=== PATIENT | female | born 1945 | race Caucasian/White ===

== ENCOUNTER 2016-10-01 06:21 | Emergency (ER) | payer MEDICARE, OTHER ==
--- NOTE | ~2016-10-01 | ST ---
Unit #: [id number] #: [id number] Patient: IZAIAH NICE [id number] [address] [address] [id number] E MR#: [id number] NAME: IZAIAH NICE. : 1945 SEX: F STUDY DATE/TIME: 10/01/2016 UNIT: HECTOR ROOM: STUDY DESCRIPTION: Stress test Attending Physician: Aguila Santiago Aprn Primary Care Physician: Saul Montanez M.D. CARDIOLOGY REPORT PROCEDURES PERFORMED Stress test. REASON FOR TEST Known coronary artery disease, left arm and left neck pain. PROCEDURE Baseline EKG shows sinus rhythm, rate of 80 beats per minute, left axis deviation, left bundle branch block. Per protocol, 0.4 mg of Lexiscan was injected, followed by Cardiolite. The patient did experience shortness of breath during the testing period but denied any complaints of chest pain. These symptoms resolved in the recovery period. There were no changes noted to the ST segment. There was an isolated PVC. The test was stopped secondary to protocol completion. CONCLUSIONS 1. Nondiagnostic EKG portion of Lexiscan Cardiolite due to baseline abnormalities and left bundle branch block. 2. No acute ST segment changes noted from baseline; however, unable to determine secondary to left bundle branch block. 3. The patient did experience shortness of breath during the testing period, which resolved in the recovery period. No complaints of chest pain. 4. There was an isolated PVC but no sustained arrhythmias. 5. Please correlate with nuclear images. Dictated by... Latia Jean A.P.R.N. for Lynne Shipman M.D. LMW/db TD: 10/01/2016 14:06 JOB #: [id number] Unit #: [id number] #: [id number] Patient: IZAIAH NICE CARDIOLOGY REPORT Page 1 of 1 X Latia Jean APRN CARDIOLOGY REPORT
--- NOTE | ~2016-10-01 | TH ---
Unit #: [id number] #: [id number] Patient: IZAIAH NICE [id number] [address] [address] [id number] E MR#: [id number] NAME: IZAIAH NICE. : 1945 SEX: F STUDY DATE/TIME: 10/01/2016 UNIT: [facility] ROOM: STUDY DESCRIPTION: Lexiscan stress test - Nuclear Attending Physician: Aguila Santiago Aprn Primary Care Physician: Saul Montanez M.D. CARDIOLOGY REPORT PROCEDURE PERFORMED Lexiscan Cardiolite stress test - Nuclear portion. PROCEDURE Using technetium 99m-labeled Cardiolite, rest and stress SPECT images were obtained. Multiple SPECT images were obtained in various views, including horizontal and vertical long axis and short axis views of the left ventricle. Images were obtained by gated SPECT method. The patient was administered 10.33 mCi of Cardiolite at rest. The patient was administered 29.4 mCi of Cardiolite after Lexiscan infusion was completed. On the stress images, there is a small area of mildly decreased tracer uptake activity in the anteroapical wall. The rest images also show a mild area of decreased tracer uptake activity anteroapically. Comparing the rest and stress images, there is no stress-induced ischemia noted. There is a small area of predominantly fixed defect seen anteroapically. The left ventricular ejection fraction is calculated to be 60%. There is no focal wall motion abnormality seen. CONCLUSION 1. No obvious stress-induced ischemia noted. 2. There is a small area of predominantly fixed defect seen anteroapically, cannot rule out infarct versus soft tissue artifact. 3. The left ventricular ejection fraction is calculated to be 60%. 4. There is no focal wall motion abnormality seen. 5. Technically limited study. Clinical correlation is requested. Dictated by... Jose Cruz Yun TD: 10/01/2016 15:38 JOB #: [id number] Unit #: [id number] #: [id number] Patient: IZAIAH NICE CARDIOLOGY REPORT Page 1 of 1 X Lynne Shipman MD <ELECTRONICALLY SIGNED> 01/01/17 1429 CARDIOLOGY REPORT
--- NOTE | ~2016-10-01 | CR72 ---
[facility] A Service of [facility] & [facility] RADIOLOGY TEXT RESULTS PATIENT: IZAIAH NICE LOCATION: [facility] : 41 UNIT #: [id number] AGE: [address]: AGUILA SANTIAGO APRN SEX: F ORDER DR: [id number] [facility] [address] [place], [place] [address] [id number] E MR#: [id number] Acc #: [id number] NAME: IZAIAH NICE. : 1945 SEX: F STUDY DATE/TIME: 10/01/2016 4:33 UNIT: [facility] ROOM: STUDY DESCRIPTION: CR Chest Single View Portable Attending Physician: Aguila Santiago Aprn Ordering Physician: Aguila Santiago Aprn Primary Care Physician: Saul Montanez M.D. MEDICAL IMAGING REPORT This report is preliminary unless electronic signature is present EXAM Portable chest INDICATION Left arm pain and shortness of air for 2 days. FINDINGS A portable view of the chest was obtained. The heart size and vascularity are normal. The lungs are clear. The bones are unremarkable. IMPRESSION No active disease. Dictated by... Kvng Rivera M.D. THIS IS AN ELECTRONICALLY VERIFIED REPORT Kvng Rivera M.D. at 10/01/2016 1:15 PM SANTOS/fe TD: 10/01/2016 06:46 JOB #: [id number] MEDICAL IMAGING REPORT Page 1 of 1 COPY
--- NOTE | ~2016-10-01 | HP ---
Unit #: [id number] #: [id number] Patient: IZAIAH NICE [id number] [facility]. [place], [place] [address] [id number] E MR#: [id number] NAME: IZAIAH NICE. ROOM: Age: 71 Sex: F Admission Date: 10/01/2016 : 1945 Attending Physician: Aguila Santiago Aprn Primary Care Physician: Saul Montanez M.D. HISTORY AND PHYSICAL ADDENDUM The patient had a Lexiscan Cardiolite stress test performed. The results showed that the patient had a small fixed anteroapical defect. No ischemia. Left ventricular ejection fraction of 50%. The results were called to Dr. Hinson. He said that was not unusual in her situation, that the test was essentially normal and to discharge her home. She is to follow up with Dr. Woodard. Other results of her lipid profile are cholesterol 121, triglycerides 134, LDL 47, HDL 47, TSH 1.19. Dr. Hinson, after exam and evaluation, felt like the pain in her shoulder, in her neck and down to the left elbow was more musculoskeletal in nature, especially after receiving results of the stress test. He prescribed that she can take ibuprofen 400 mg p.o. b.i.d. She has been instructed to follow up with her family doctor, Dr. Saul Montanez, for further evaluation and management if the pain persists or is worsening. This has been explained to the patient and spouse. Dictated by Russ Washburn/pardeep TD: 10/01/2016 15:41 JOB #: [id number] HISTORY AND PHYSICAL Page 1 of 1 X Moon Evans APRN X HISTORY AND PHYSICAL
--- NOTE | ~2016-10-01 | HP ---
Unit #: [id number] #: [id number] Patient: IZAIAH NICE [id number] [facility]. [place], [place] [address] [id number] E MR#: [id number] NAME: IZAIAH NICE ROOM: Age: 71 Sex: F Admission Date: 10/01/2016 : 1945 Attending Physician: Aguila Santiago Aprn Primary Care Physician: Saul Montanez M.D. HISTORY AND PHYSICAL HISTORY OF PRESENT ILLNESS This is a 71-year-old white female with known history of hypertension, hyperlipidemia, had a cath back in [address] Woodard that showed LV EF of 45% with mild luminal irregularities in the proximal mid LAD and proximal diagonal, history of colon cancer a few years back and her last colonoscopy was normal. She has GERD, restless leg syndrome, arthritis, who came to the emergency room after she woke up this morning about 2 a.m. with left-sided neck pain that radiated down into her left shoulder, down into her elbow and into her upper back under the scapula. She said it was waxing and waning but it was intensifying. She also had the same similar symptoms yesterday morning but a couple hours after getting up she said it eased off. She went to see Dr. Woodard yesterday on a normal regular checkup. She did not mention the discomfort at the time of the visit. Her was concerned it could be her heart, so he brought her in for further evaluation. She denies any diaphoresis, shortness of breath, dizziness, or palpitation with the discomfort. She did have some slight nausea but no vomiting or diarrhea. No fever or chills. No cough. In the emergency room, the patient's blood pressure was 170/71, heart rate 75, respirations 16, temperature 97.6, and O2 saturation was 96% on room air. Her initial cardiac enzymes are negative. Her EKG shows sinus rhythm. She does have a left bundle branch block. Looking back on previous EKGs, this is unchanged. Patient was given Lortab 5 mg p.o. and she will be admitted for further evaluation and management. PAST MEDICAL HISTORY 1. In 2006, cardiac cath performed by Dr. Woodard showed LV EF of 45%, mild luminal irregularities to the proximal mid LAD and the proximal diagonal. Medical management. 2. Has had a stress test since that heart catheterization, per Dr. Woodard. According to the family, was normal. 3. History of left bundle branch block on EKG. 4. History of colon cancer, last C-scope in February 2015 did not show anything acute. 5. Hypertension. 6. Hyperlipidemia. 7. Gastroesophageal reflux disease. 8. Restless leg syndrome. 9. Arthritis. 10. Nonsmoker. PAST SURGICAL HISTORY 1. Right knee replacement. 2. Left knee replacement. Unit #: [id number] #: [id number] Patient: IZAIAH NICE 3. Bladder surgery, pessary. 4. Hysterectomy. 5. Carpal tunnel repair. 6. Colonoscopy, February 2015, which was negative for any colon cancer. HOME MEDICATIONS This is taken off the patient's own home list: 1. Gabapentin 100 mg t.i.d. p.r.n. 2. Meloxicam 7.5 mg one tablet daily. 3. Hydrochlorothiazide 12.5 mg one tablet daily. 4. Carvedilol 12.5 mg p.o. twice daily. 5. Ropinirole HCl 1 mg p.o. three times daily. 6. Amlodipine/benazepril 10 mg one tablet daily. 7. Ranitidine 150 mg p.o. twice daily. 8. Metformin 500 mg one tablet twice daily. 9. Atorvastatin 40 mg one tablet daily. 10. Diclofenac 1.5% topical solution up to 20 drops, no more than 40 drops a day on effected area. ALLERGIES No known drug allergies. SOCIAL HISTORY The patient lives with her spouse. She has some slight memory problems but has not been diagnosed with any dementia or Alzheimer. Has been a lifelong nonsmoker. No alcohol or illicit drug abuse. FAMILY HISTORY Both her parents in their 70s and her mother of some type of heart attack. Her father had a stroke. Her siblings are in generally well health. REVIEW OF SYSTEMS CONSTITUTIONAL: Denies fever, chills. No recent weight gain/weight loss. HEENT: Denies headache or dizziness. No visual or hearing changes. No lymphadenopathy, thyromegaly. No difficulty swallowing. CARDIOVASCULAR: Left neck, left shoulder, and left upper arm pain. Denies palpitations. Has chronic increased lower extremity edema. PULMONARY: Denies shortness of breath. Denies paroxysmal nocturnal dyspnea or orthopnea. GASTROINTESTINAL: Had some slight nausea. No vomiting, diarrhea, or abdominal pain. NEUROLOGIC: No focal weakness. PHYSICAL EXAMINATION GENERAL: On exam, Ms. Nice is a 71-year-old white female in no acute respiratory distress. She is awake, alert. Answers most questions appropriately. VITAL SIGNS: Blood pressure is 147/65, heart rate 70, respirations 18, temperature 97.9, and O2 saturations 99% on room air. NECK: Trachea midline. No thyromegaly, lymphadenopathy. Normal carotid upstrokes. No jugular venous distention. HEART: S1, S2. Regular rate and rhythm. No clicks, murmurs, or rubs. LUNGS: Diminished, otherwise clear. ABDOMEN: Soft, nontender. Positive bowel sounds present. No hepatosplenomegaly. EXTREMITIES: Pedal pulses are palpable. Trace pedal edema. Unit #: [id number] #: [id number] Patient: IZAIAH NICE DIAGNOSTIC STUDIES LABORATORY: Glucose is 126, BUN 14, creatinine 0.5, eGFR is 96, sodium 133, potassium 3.8, chloride 96, CO2 of 27, calcium 8.8. Total protein 6.9, albumin 3.6, bilirubin total 0.6, AST 22, ALT 28, alkaline phosphatase 53. WBC 7.6, hemoglobin 14.7, hematocrit 43.7, and platelets 261,000. Initial cardiac enzymes: CK-MB is less than 1, troponin less than 0.05. INR is pending. IMAGING: Chest x-ray shows the lungs are clear, no active disease. CARDIOVASCULAR: EKG shows normal sinus rhythm with left atrial enlargement, left bundle branch block, left axis deviation, poor R-wave progression. IMPRESSION 1. Left neck and left shoulder pain, questionable etiology. 2. In 2006, had a cardiac catheterization that revealed luminal irregularities with left ventricular ejection fraction of 45%. 3. Hypertension. 4. Hyperlipidemia. 5. Left bundle branch block on EKG. 6. Gastroesophageal reflux disease. 7. Arthritis. 8. Nonsmoker. PLAN 1. Continue to monitor cardiac enzymes and EKG. If the next set in four hours are negative, will proceed with a Lexiscan Cardiolite stress test to further evaluate for ischemic heart disease. 2. According to the patient, she saw Dr. Woodard yesterday. He thought everything was stable. He even made the statement that she did not need to see him unless she has issues, but they were going to see her in another year. She did not tell Dr. Woodard about the discomfort that she had in her neck and in the left shoulder to the elbow. Her EKG has been showing a left bundle branch block on previous EKG, but will obtain records from Dr. Woodard's office; his latest cardiology note, copy of an EKG and latest stress, and the 2D echocardiogram. 3. Check a TSH and fasting lipid profile and evaluate. 4. On exam, there are no signs or symptoms of acute congestive heart failure. 5. Further recommendations pending per Dr. Hinson. Dictated by Moon Evans A.P.R.N. for Jose Cruz [place]on/dm TD: 10/01/2016 09:29 JOB #: [id number] CC: Saul Montanez M.D. Unit #: [id number] #: [id number] Patient: IZAIAH NICE HISTORY AND PHYSICAL Page 1 of 1 X Moon Evans APRN HISTORY AND PHYSICAL
--- NOTE | ~2016-10-01 | EKG ---
PATIENT: IZAIAH NICE UNIT #: [id number] Ventricular Rate: 76 BPM Atrial Rate: 76 BPM P-R Interval: 168 ms QRS Duration: 132 ms Q-T Interval: 442 ms QTC Calculation(Bezet): 497 ms P [place]: 38 degrees Calculated R [place]: -56 degrees Calculated T [place]: 48 degrees Diagnosis Line: Normal sinus rhythm Diagnosis Line: Possible Left atrial enlargement Diagnosis Line: Left axis deviation Diagnosis Line: Left bundle branch block Diagnosis Line: Abnormal ECG Diagnosis Line: No previous ECGs available Diagnosis Line: Confirmed by MERRILL GRUBER MD ([id number]) on Diagnosis Line: 10/02/2016 6:38:15 AM INTERPRETING MD: MILTON
[2016-10-01 05:20] LABS: BASOPHIL# 0.1 X10e3 (0-0.3); BASOPHIL% 0.8 % (0-2.5); EOSINOPHIL# 0.1 X10e3 (0-0.7); EOSINOPHIL% 1.3 % (0.0-7.0); HEMATOCRIT 43.7 % (35.0-45.0); HEMOGLOBIN 14.7 gm/dL (12.0-16.0); LYMPHOCYTE# 2.3 X10e3 (1.0-3.5); LYMPHOCYTE% 29.7 % (17.0-45.0); MEAN CELL VOLUME 82.5 FL (83-96); MEAN CORPUSCULAR HEMOGLOBIN 27.7 PG (28-34); MEAN CORPUSCULAR HGB CONC 33.6 g/dL (30-36); MEAN PLATELET VOLUME 8.1 FL (6.5-11.5); MONOCYTE# 0.5 X10e3 (0-1.0); NEUTROPHIL# 4.6 X10e3 (1.5-7.1); NEUTROPHIL% 61.2 % (40-75); PLATELET COUNT 261 X10e3 (140-420); RED CELL DISTRIBUTION WIDTH 14.4 % (11.0-15.5); WHITE BLOOD COUNT 7.6 X10e3 (4.0-10.5)
[2016-10-01 05:23] LABS: DIFF IND NO
[2016-10-01 06:18] LABS: ALBUMIN SERUM 3.6 g/dL (3.5-5.0); BILIRUBIN, DIRECT 0.1 mg/dL (0.0-0.2); BILIRUBIN,INDIRECT 0.5 mg/dL (0.0-0.9); BILIRUBIN,TOTAL 0.6 mg/dL (0.2-2.0); CALCIUM SERUM 8.8 mg/dL (8.4-10.2); CREATININE SERUM 0.5 mg/dL (0.6-1.4); POTASSIUM 3.8 mmol/L (3.5-5.1); PROTEIN TOTAL SERUM 6.9 g/dL (6.0-8.3)
[~2016-10-01 06:21] MED LIST: ACETAMINOPHEN PO; ALEVE PO; AMLODIPINE-BEN1 EAC3 PO; ASPIRIN81 M1 PO; ASPIRIN81 M2 PO; CARVEDILOL12.5 MG PO; CENTRUM SILVER PO; HYDROCHLOROTH12.5 MG PO; LIBRIUM PO; LIPITOR40 MG PO; LORTAB 7.5-5001 TAB PO; LOTREL 10-20 MG1 CAP PO; METAMUCIL197.2 GM PO; METFORMIN HCL500 M1 PO; MILK OF MAGNESIA PO; MOBIC PO; NEURONTIN100 MG PO; PERCOCET5/325 PO; PHENERGAN PO; REQUIP1 MG PO; TRILIPIX135 MG PO; VIT C PO; ZANTAC150 M1 PO
[2016-10-01 07:07] LABS: POC - CKMB <1.0 ng/mL (0.0-7.9); POC - TROPONIN <0.05 ng/mL (<=0.05)
[2016-10-01 11:25] LABS: CHOLESTEROL 121 mg/dL (0-200); HDL CHOLESTEROL 47 mg/dL (35-95); LDL CHOLESTEROL 47 mg/dL (-130); LDL/HDL RATIO 1 RATIO (0-4); TRIGLYCERIDES 134 mg/dL (10-160)
[2016-10-01 11:48] LABS: %MB 2.8 % (0.0-4.0); MB 1.7 ng/ml
== END 2016-10-01 16:11 | disposition home or self-care (01) ==
LOC: CED 06:21
PROVIDERS: Internal Medicine Cardiovascular Disease; Nurse Practitioner Family
DX: M54.2 Cervicalgia (principal); M79.602 Pain in left arm; E78.5 Hyperlipidemia, unspecified; I25.2 Old myocardial infarction; I10 Essential (primary) hypertension; Z90.710 Acquired absence of both cervix and uterus
CPT/HCPCS: 36415; 71010; 78452; 80048; 80061; 80076; 82550; 82553; 84443; 84484; 85025; 93005; 93017; 99283; A9500; J2785